=== PATIENT | female | born 1945 | race Caucasian/White ===

== ENCOUNTER 2023-02-23 12:01 | Outpatient (CLI) | payer MEDICARE, BC ==
[2023-02-23 12:13] LABS: BASOPHILS % (AUTO) 0.9 %; EOSINOPHILS # (AUTO) 0.2 10^3/uL (0.0-0.7); EOSINOPHILS % (AUTO) 4.1 %; HCT - HEMATOCRIT 44.2 % (37.0-47.0); HGB - HEMOGLOBIN 14.4 g/dL (12.0-16.0); LYMPHOCYTES # (AUTO) 1.1 10^3/uL (1.5-3.5); LYMPHOCYTES % (AUTO) 24.2 %; MEAN CORPUSCULAR HEMOGLOBIN 30.2 pg (27.0-31.0); MEAN CORPUSCULAR HGB CONC 32.6 g/dL (32.0-36.0); MEAN CORPUSCULAR VOLUME 92.7 fL (81.0-99.0); MEAN PLATELET VOLUME 8.6 fL (7.9-10.8); MONOCYTES # (AUTO) 0.6 10^3/uL (0.0-1.0); MONOCYTES % (AUTO) 13.9 %; NEUTROPHILS # (AUTO) 2.6 10^3/uL (1.5-6.6); NEUTROPHILS % (AUTO) 56.7 %; PLT - PLATELET COUNT 211 10^3/uL (130-450); RED BLOOD COUNT 4.77 10^6/uL (4.20-5.40); RED CELL DISTRIBUTION WIDTH 12.8 % (12.0-15.0); WHITE BLOOD COUNT 4.6 x10^3/uL (4.8-10.8)
[2023-02-23 12:43] LABS: THYROID STIMULATING HORMONE 2.94 uIU/mL (0.34-5.60)
[2023-02-23 12:56] LABS: ALBUMIN 4.6 g/dL (3.2-5.5); ALBUMIN/GLOBULIN RATIO 1.5 (1.0-2.2); BILIRUBIN,TOTAL 0.5 mg/dL (0.2-1.0); CALCIUM 9.9 mg/dL (8.5-10.3); CREATININE 0.7 mg/dL (0.6-1.3); TOTAL PROTEIN 7.7 g/dL (6.4-8.9)
== END 2023-02-23 12:02 | disposition home or self-care (01) ==
LOC: LAB 12:01
PROVIDERS: ATTEND Internal Medicine
DX: R14.0 Abdominal distension (gaseous) (principal); R63.0 Anorexia; R06.09 Other forms of dyspnea; R11.10 Vomiting, unspecified; R06.01 Orthopnea; R06.2 Wheezing
CPT/HCPCS: 36415; 80053; 82150; 83690; 83880; 84443; 85025

== ENCOUNTER 2023-02-27 13:51 | Outpatient (CLI) | payer MEDICARE, BC ==
--- NOTE | 2023-02-27 15:34 | XRAY Report ---
PROCEDURE: Chest 2 View X-Ray INDICATIONS: DYSPNEA TECHNIQUE: 2 views of the chest were obtained. COMPARISON: None. FINDINGS: Surgical changes and devices: None. Lungs and pleura: There is hyperinflation and chronic interstitial changes without focal infiltrate, pneumothorax or pleural effusion. Mediastinum: Mediastinal contours appear normal. Heart size is normal. Atherosclerotic vascular tonya cification noted in the aortic arch. Bones and chest wall: No suspicious bony lesions. Overlying soft tissues appear unremarkable. IMPRESSION: Hyperinflation and chronic interstitial changes Reviewed by: Dioni Khanna MD on 02/27/2023 2:32 PM AKDT Approved by: Dioni Khanna MD on 02/27/2023 2:32 PM AKDT Station ID: [id number]
== END 2023-02-27 13:52 | disposition home or self-care (01) ==
LOC: DI 13:51
PROVIDERS: ATTEND Internal Medicine
DX: R06.09 Other forms of dyspnea (principal)

== ENCOUNTER 2023-03-16 14:30 | Outpatient (CLI) | payer MEDICARE, BC ==
[2023-03-16 14:56] LABS: CREATININE 0.8 mg/dL (0.6-1.3)
== END 2023-03-16 14:31 | disposition home or self-care (01) ==
LOC: LAB 14:30
PROVIDERS: ATTEND Internal Medicine
DX: Z79.899 Other long term (current) drug therapy (principal)
CPT/HCPCS: 36415; 82565

== ENCOUNTER 2023-03-20 10:39 | Outpatient (CLI) | payer MEDICARE, BC ==
[2023-03-20] MEDS ORDERED: iohexoL-300 100 ML VIAL IVP ONE (11:38)
--- NOTE | 2023-03-20 15:36 | CT Report ---
PROCEDURE: CHEST W INDICATIONS: DYSPNEA ON EXERTION CONTRAST: 100ml omni TECHNIQUE: After the administration of intravenous contrast, 1 mm axial images were acquired from the pulmonary apices through the posterior costophrenic angles. Axial 5 mm soft tissue kernel reconstructions were performed as well as 8 mm axial MIP and coronal and sagittal 5 mm reformations. For radiation dose reduction, the following was used: automated exposure control, adjustment of mA and/or kV according to patient size. COMPARISON: Chest x-ray 02/27/2023.. FINDINGS: Image quality: Excellent. Lungs and pleura: No consolidation. No pleural effusions. No pneumothorax. No suspicious pulmonary n odules which require follow up. Minimal appearance of scattered reticular opacities most prominent i n the lingula and right middle lobe. Mediastinum: Heart size is normal. No pericardial effusion. No large vessel abnormality. No mediastin al adenopathy by size criteria. Chest wall and lower neck: Thyroid is unremarkable. No axillary or supraclavicular adenopathy by size . Bones: No aggressive osseous abnormality. Upper Abdomen: Unremarkable. IMPRESSION: Nonspecific minimal scattered reticular opacities possibly related to scarring. Reviewed by: Vickie Westbrook MD on 03/20/2023 3:35 PM PDT Approved by: Vickie Westbrook MD on 03/20/2023 3:35 PM PDT Station ID: [id number]
== END 2023-03-20 10:40 | disposition home or self-care (01) ==
LOC: DI 10:39
PROVIDERS: ATTEND Internal Medicine
DX: R06.09 Other forms of dyspnea (principal)
CPT/HCPCS: 71260; Q9967

== ENCOUNTER 2023-06-28 10:53 | Outpatient (CLI) | payer MEDICARE, BC ==
[2023-06-28] MEDS: ALBUTEROL 1 PUFF INH STA (12:28)
== END 2023-06-28 10:54 | disposition home or self-care (01) ==
LOC: RT 10:53
PROVIDERS: ATTEND Internal Medicine
DX: R06.09 Other forms of dyspnea (principal)
CPT/HCPCS: 94060